=== PATIENT | male | born 1975 | race American Indian/Alaskan Native ===

== ENCOUNTER 2020-04-03 07:41 | Emergency (ER) | payer BC ==
[2020-04-03 08:04] VITALS: BP 117/78
[2020-04-03] MEDS ORDERED: KETOROLAC 60 MG/2 ML INJ IM ONE (10:26)
[2020-04-03] MEDS ORDERED: dexAMETHasone 20 MG/5 ML VIAL IM ONE (10:26)
--- NOTE | 2020-04-03 10:31 | Emergency Department Report ---
ED Back Pain/Injury HPI - General Chief Complaint: Back Pain/Injury Stated Complaint: LOWER BACK PAIN Time Seen by Provider: 04/03/20 10:08 Source: patient Limitations: No Limitations - History of Present Illness Initial Comments: 45 yr old male with no significant pmhx presents to ED c/o low back pain. Pt states his back pain started about 1.5wks ago. He denies injury. 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 He states pain seems to be worse in morning when he wakes up. He states it does seem to improve mildly as he moves about through out the day. He states he has not been taking anything for pain but he has been wearing a back brace which has been helping. He states that initially he was wearing a back brace mainly when he was at work, but in the past 2 days he has been wearing the back brace more at home. He states that since he has been in the ER he noticed some pain radiating into his right thigh, he did not have that before. He denies any lower extremity weakness, saddle anesthesia, leg numbness or tingling, abdominal pain, bowel or bladder incontinence, fever or chills. He denies similar symptoms in past. MD Complaint: back pain -: week(s) (1.5) Similar Symptoms Previously: No - Related Data Previous Rx's Medication Instructions Recorded Last Taken Type Ketorolac [Toradol] 10 mg PO Q6H PRN #20 tablet 04/03/20 Unknown Rx Methocarbamol [Robaxin] 500 mg PO TID PRN #20 tablet 04/03/20 Unknown Rx Allergies Allergy/AdvReac Type Severity Reaction Status Date / Time No Known Allergies Allergy Unverified 04/03/20 08:03 ED Review of Systems ROS: Stated complaint: LOWER BACK PAIN Other details as noted in HPI Comment: All other systems reviewed and negative Constitutional: denies: chills, fever Respiratory: denies: cough, shortness of breath, wheezing Cardiovascular: denies: chest pain, palpitations Gastrointestinal: denies: abdominal pain, nausea, diarrhea Genitourinary: denies: urgency, dysuria Musculoskeletal: denies: back pain Skin: denies: rash, lesions Neurological: denies: headache, weakness, paresthesias Psychiatric: as per HPI Hematological/Lymphatic: denies: easy bleeding, easy bruising ED Past Medical Hx - Past Medical History Previous Medical History?: No - Surgical History Past Surgical History?: No - Medications Home Medications: Home Medications Medication Instructions Recorded Confirmed Last Taken Type Ketorolac [Toradol] 10 mg PO Q6H PRN #20 tablet 04/03/20 Unknown Rx Methocarbamol [Robaxin] 500 mg PO TID PRN #20 tablet 04/03/20 Unknown Rx ED Physical Exam - General Limitations: No Limitations General appearance: alert, in no apparent distress - Head Head exam: Present: atraumatic, normocephalic, normal inspection - ENT ENT exam: Present: normal exam - Neck Neck exam: Present: normal inspection - Respiratory Respiratory exam: Present: normal lung sounds bilaterally. Absent: respiratory distress - Cardiovascular Cardiovascular Exam: Present: regular rate, normal rhythm, normal heart sounds - GI/Abdominal GI/Abdominal exam: Present: soft. Absent: distended, tenderness - Back Exam Back exam: Present: normal inspection, other (Pt does not appear to have ttp along the lumbar spine/nor paraspinal muscles; there is a muscle spasn noted left paraspinal muscle upper lumbar area. He has pain more on left and right rotation of spine but he otherwise has FUll rom. He has no swelling, ecchymosis, deformity or erythema noted. ). Absent: tenderness, CVA tenderness (R), muscle spasm, paraspinal tenderness, vertebral tenderness, rash noted - Neurological Exam Neurological exam: Present: alert, oriented X3, CN II-XII intact. Absent: abnormal gait, motor sensory deficit - Skin Skin exam: Present: intact ED Course Vital Signs 04/03/20 08:04 Temperature 98.3 F Pulse Rate 75 Respiratory 16 Rate Blood Pressure 117/78 [Right] O2 Sat by Pulse 98 Oximetry ED Medical Decision Making - Radiology Data Radiology results: report reviewed Findings [facility] [address] [place] [address] XRay Report Signed Patient: PADMINI DUKES MR#: [id number] : 1975 Acct:[id number] Age/Sex: 45 / M ADM Date: 04/03/20 Loc: ED Attending Dr: Ordering Physician: OSCAR OROZCO Date of Service: 04/03/20 Procedure(s): XR spine lumbosacral 2-3V Accession Number(s): [id number] cc: OSCAR Gonzales Time In Minutes: LUMBAR SPINE 3 VIEWS INDICATION / CLINICAL INFORMATION: low back pain. COMPARISON: None available. FINDINGS: VERTEBRAE: No fracture. No significant malalignment. DISC SPACES:Mild discogenic degenerative disease L2-3 and L4-5. FACET JOINTS:No significant abnormality. ADDITIONAL FINDINGS: None. IMPRESSION: 1. No significant abnormality. Signer Name: Johnson Hidalgo MD Sig malissa: 04/03/2020 10:55 AM Workstation Name: [email or web address] Transcribed By: TL Dictated By: Johnson Hidalgo MD Electronically Authenticated By: Johnson Hidalgo MD Signed Date/Time: 04/03/20 1055 - Medical Decision Making 1121 -- pt presents with low back pain x 1.5 weeks. Pt is well appearing, not toxic, no acute distress, awke alert oriented x3 and neurologically intact with normal gait Lumbar spine xray show mild DDD otherwise nl Pt history/exam/and current condition does not demonstrate any signs of cauda equina, epidural abscess, AAA/dissection, epidural hematoma, UTI/kidney stone or any other significant abnl requiring further testing/imaging, admission or emergent consult at this time. Discussed results, suspected dx and tx plan with pt. Pt expresses understanding of instructions and agrees with plan. Pt stable at time of d/c. Critical care attestation.: If time is entered above; I have spent that time in minutes in the direct care of this critically ill patient, excluding procedure time. ED Disposition Clinical Impression: Low back pain, Lumbar paraspinal muscle spasm, DDD (degenerative disc disease), lumbar Disposition: DC-01 TO HOME OR SELFCARE Is pt being admited?: No Does the pt Need Aspirin: No Condition: Stable Instructions: Lumbar Radiculopathy (ED), Muscle Spasm (ED), Degenerative Disc Disease (ED) Additional Instructions: I recommend that you take medications as prescribed. I recommend follow up with PCP/[facility] for outpatient MRI especially is symptoms continues. Return to ED if anything changes or worsens. Prescriptions: Methocarbamol [Robaxin] 500 mg PO TID PRN #20 tablet PRN Reason: Spasms Ketorolac [Toradol] 10 mg PO Q6H PRN #20 tablet PRN Reason: Pain Referrals: CARBUCCIA,YAW, MD [Staff Physician] - 7-10 days Forms: Work/School Release Form Time of Disposition: 11:06
--- NOTE | 2020-04-03 11:00 | XRay Report ---
LUMBAR SPINE 3 VIEWS INDICATION / CLINICAL INFORMATION: low back pain. COMPARISON: None available. FINDINGS: VERTEBRAE: No fracture. No significant malalignment. DISC SPACES:Mild discogenic degenerative disease L2-3 and L4-5. FACET JOINTS:No significant abnormality. ADDITIONAL FINDINGS: None. IMPRESSION: 1. No significant abnormality. Signer Name: Johnson Hidalgo MD Signed: 04/03/2020 10:55 AM Workstation Name: [email or web address]
== END 2020-04-03 11:17 | disposition home or self-care (01) ==
LOC: ED 07:41
DX: M62.830 Muscle spasm of back (principal); M51.36 Other intervertebral disc degeneration, lumbar region
CPT/HCPCS: 72100; 96372; 99283; J1100; J1885